=== PATIENT | male | born 1950 | race Caucasian/White ===

== ENCOUNTER 2018-03-01 00:31 | Inpatient (IN) | payer MEDICARE ==
[~2018-03-01] VITALS: Ht 180.3 cm; Wt 130.5 kg
[2018-03-01] MEDS ORDERED: Zestril40 MG PO (00:56)
[2018-03-01] MEDS ORDERED: FURO20 PO (00:56)
[2018-03-01 01:16] LABS: BASOPHILS ABSOLUTE AUTO 0.11 K/mm3 (0.00-0.23); BASOPHILS PERCENT AUTO 1 % (0-2); EOSINOPHILS ABSOLUTE AUTO 0.23 K/mm3 (0.00-0.68); EOSINOPHILS PERCENT AUTO 2 % (0-6); Hematocrit 37.9 % (37.0-53.0); Hemoglobin 12.4 g/dL (13.5-17.5); IMMATURE GRAN ABSOLUTE AUTO 0.07 K/mm3 (0.00-0.10); IMMATURE GRAN PERCENT AUTO 1 % (0-1); LYMPHOCYTES ABSOLUTE AUTO 0.89 K/mm3 (0.84-5.20); LYMPHOCYTES PERCENT AUTO 7 % (21-46); MONOCYTES ABSOLUTE AUTO 0.67 K/mm3 (0.16-1.47); MONOCYTES PERCENT AUTO 6 % (4-13); Mean Corpuscular HGB 28.2 pg (26.0-34.0); Mean Corpuscular HGB Conc 32.7 g/dL (31.5-36.5); Mean Corpuscular Volume 86 fL (80-100); Mean Platelet Volume 10.9 fL (9.1-12.4); NEUTROPHILS ABSOLUTE AUTO 10.26 K/mm3 (1.96-9.15); NEUTROPHILS PERCENT AUTO 84 % (41-73); Platelet Count 220 K/mm3 (150-400); RDW Coefficient Variation 14.4 % (11.7-14.2); RDW Standard Deviation 45.9 fL (35.1-46.3); Red Blood Cell Count 4.39 M/mm3 (4.30-5.90); White Blood Cell Count 12.23 K/mm3 (4.00-11.30)
[2018-03-01 01:34] LABS: Alanine Aminotransfer (ALT/SGP 14 U/L (12-78); Albumin, Blood 3.5 g/dL (3.4-5.0); Albumin/Globulin Ratio 0.9 (0.8-1.8); Alk Phos 95 U/L (50-136); Anion Gap 9 mmol/L (6-16); Aspartate Aminotrans (AST/SGOT 8 U/L (12-37); Bilirubin, Total 0.4 mg/dL (0.1-1.0); Blood Urea Nitrogen 17 mg/dL (8-24); Bun/Creatinine Ratio 15.7 (12.0-20.0); CO2, Blood 25 mmol/L (21-32); Calcium, Blood 9.3 mg/dL (8.5-10.1); Chloride, Blood 108 mmol/L (98-108); Creatinine, Blood 1.08 mg/dL (0.60-1.20); Globulin, Blood 4.1 g/dL (2.2-4.0); Glomerular Filtration Rate >60 (60-); Glucose, Blood 166 mg/dL (70-99); Potassium, Blood 3.5 mmol/L (3.5-5.5); Sodium, Blood 142 mmol/L (136-145); Total Protein, Blood 7.6 g/dL (6.4-8.2); Troponin I <0.015 ng/mL (0.000-0.040)
[2018-03-01] MEDS ORDERED: CARV25 PO (02:33)
[2018-03-01] MEDS ORDERED: NIFE30ER PO (02:35)
[2018-03-01] MEDS ORDERED: POTCHL20ER PO (02:36)
[2018-03-01] MEDS ORDERED: NIFE90ER PO (02:36)
[2018-03-01 04:14] LABS: Source, Urine Clean Catch
[2018-03-01 04:17] LABS: Bilirubin, Urine Neg (Neg); Blood, Urine Neg (Neg); Glucose Qualitative, Urine 1+ (Neg); Ketones, Urine Neg (Neg); Leukocyte Esterase, Urine Neg (Neg); Nitrite, Urine Neg (Neg); Protein, Urine 1+ (Neg); Urobilinogen, Urine NORM (Normal)
[2018-03-01 04:24] LABS: Appearance, Urine Clear (Clear); Color, Urine Yellow (P-Yellow)
[2018-03-01 10:10] LABS: CHOL/HDL RATIO 6.1; Cholesterol 215 mg/dL (50-200); HDL Cholesterol 35 mg/dL (>39); LDL/HDL RATIO 4.8; Low Density Lipoprotein Chol 169 mg/dL (0-110); Thyroid Stimulating Hormone 0.777 uIU/mL (0.360-4.800); Triglycerides 53 mg/dL (30-160); Very Low Density Lipoprot Chol 10 mg/dL (6-32)
== END 2018-03-01 17:27 | disposition short-term general hospital (02) | DRG 65 ==
LOC: ER 00:31 → ICUE 03:59 → ICUW 03:59 → ICUE 04:15
PROVIDERS: Emergency Medicine; Internal Medicine
DX: I63.9 Cerebral infarction, unspecified (principal); G81.90 Hemiplegia, unspecified affecting unspecified side; E78.5 Hyperlipidemia, unspecified; R47.81 Slurred speech; R42 Dizziness and giddiness; I11.0 Hypertensive heart disease with heart failure; I50.9 Heart failure, unspecified; E66.9 Obesity, unspecified; Z68.37 Body mass index [BMI] 37.0-37.9, adult; I48.91 Unspecified atrial fibrillation; I45.10 Unspecified right bundle-branch block; R47.01 Aphasia
CPT/HCPCS: 36415; 51702; 70450; 70544; 70551; 71045; 80053; 80061; 82947; 84443; 84484; 85025; 92610; 93005; 93010; 93306; 93880; 97166; 97530; 99285; G8987; G8988; G8996; G8997; G8998; J1650; J2405

== ENCOUNTER 2019-10-16 06:11 | Day surgery (SDC) | payer MEDICARE ==
[~2019-10-16] VITALS: Ht 182.9 cm; Wt 130.3 kg
[~2019-10-16 06:11] MED LIST: CARV25 PO; CARVEDILOL12.5 MG PO; FURO20 PO; LIPITOR80 MG PO; LOW DOSE ASPIRI81 MG PO; NIFE30ER PO; NIFE90ER PO; POTCHL20ER PO; XARELTO20 MG PO; Zestril40 MG PO
[2019-10-30] MEDS ORDERED: Aspirin EC81 MG PO (08:46)
== END 2019-10-16 08:14 | disposition home or self-care (01) ==
LOC: ORSCSDS 06:11
PROVIDERS: Ophthalmology
PROC: 08RK3JZ Replacement of Left Lens with Synthetic Substitute, Percutaneous Approach (ICD-10-PCS; principal; 2019-10-16 07:30)
DX: H25.12 Age-related nuclear cataract, left eye (principal); I10 Essential (primary) hypertension; E66.01 Morbid (severe) obesity due to excess calories; Z68.38 Body mass index [BMI] 38.0-38.9, adult; Z86.73 Personal history of transient ischemic attack (TIA), and cerebral infarction without residual deficits; Z79.01 Long term (current) use of anticoagulants; Z79.899 Other long term (current) drug therapy
CPT/HCPCS: 82947; J2001; J2250; J3010; J3301; J7120; V2632

== ENCOUNTER 2019-11-06 07:52 | Day surgery (SDC) | payer MEDICARE ==
[~2019-11-06] VITALS: Ht 182.9 cm; Wt 284.8 kg
[~2019-11-06 07:52] MED LIST changes: +Aspirin EC81 MG PO
--- NOTE | 2019-11-06 08:50 | NUR ---
11/06/19 0850 Mello Rashid CALL LIGHT WITHIN REACH
== END 2019-11-06 10:28 | disposition home or self-care (01) ==
LOC: ORSCSDS 07:52
PROVIDERS: Ophthalmology
PROC: 08RJ3JZ Replacement of Right Lens with Synthetic Substitute, Percutaneous Approach (ICD-10-PCS; principal; 2019-11-06 09:30)
DX: H25.11 Age-related nuclear cataract, right eye (principal); I10 Essential (primary) hypertension; Z86.73 Personal history of transient ischemic attack (TIA), and cerebral infarction without residual deficits; Z79.01 Long term (current) use of anticoagulants; Z79.899 Other long term (current) drug therapy
CPT/HCPCS: J2001; J2250; J3010; J3301; J7040; V2632